=== PATIENT | female | born 1980 | race Two or more races ===

== ENCOUNTER 2017-05-15 13:02 | Inpatient (IN) | payer BC ==
[~2017-05-15] VITALS: Ht 165.1 cm; Wt 82.7 kg
[2017-05-15 13:53] LABS: Basophils # (auto) 0.1 uL; Basophils % (auto) 0.9 % (0.0-2.0); Eosinophils # (auto) 0.1 uL; Eosinophils % (auto) 1.5 % (0.0-7.0); Hematocrit 43.8 % (36.0-46.0); Lymphocytes # (auto) 2.8 uL; Lymphocytes % (auto) 32.1 % (10.0-50.0); Mean Corpuscular Hemoglobin 29.9 pg (28.0-32.0); Mean Corpuscular Hgb Conc. 34.2 g/dL (32.0-36.0); Mean Corpuscular Volume 87.4 fL (80.0-100.0); Mean Platelet Volume 8.5 fL (6.9-10.8); Monocytes # (auto) 0.4 uL; Monocytes % (auto) 4.6 % (0.0-12.0); Neutrophils # (auto) 5.3 uL; Neutrophils % (auto) 60.9 % (37.0-80.0); Nucleated Red Blood Cells % 0.1 %; Platelet Count (auto) 258 10^3/uL (140-450); Red Cell Distribution Width 13.4 % (11.8-14.3); White Blood Cell 8.7 10^3/uL (4.4-10.8)
[2017-05-15 14:20] LABS: Albumin 4.1 g/dL (3.4-5.0); Alkaline Phosphatase 41 U/L (45-117); Anion Gap 9 (5-15); Aspartate Aminotransferase 17 U/L (15-37); BUN/Creatinine Ratio 10.6; Bilirubin, Total 0.8 mg/dL (0.2-1.0); Blood Urea Nitrogen 7 mg/dL (7-18); Calcium 8.9 mg/dL (8.5-10.1); Carbon Dioxide 25 mmol/L (21-32); Chloride 104 mmol/L (98-107); GFR African American 132 mL/min; GFR Non-African American 109 mL/min; Glucose 96 mg/dL (74-106); Magnesium 2.5 mg/dL (1.6-2.6); Potassium 3.7 mmol/L (3.5-5.1); Sodium 138 mmol/L (136-145)
[2017-05-15] MEDS ORDERED: SODIUM CHLORIDE 0.9% 1,000 ML IV ONE (14:45)
[2017-05-15] MEDS ORDERED: MORPHINE SULF INJ 2 MG/ML SYRINGE 1ML IV ONE (14:45)
[2017-05-15] MEDS ORDERED: ASPirin 81 mg TAB PO ONE ×2 (14:45→16:30)
[2017-05-15] MEDS ORDERED: ONDANSETRON HCL 4 MG/2 ML VIAL IV ONE (14:45)
[2017-05-15 15:06] LABS: Urine Bilirubin Negative (Negative); Urine Blood TRACE /uL (Negative); Urine Color Yellow (Yellow); Urine Glucose Normal (Normal); Urine Ketone Negative (Negative); Urine Nitrite Negative (Negative); Urine RBC 2 /hpf (0 - 4); Urine Squamous Epithelial Cell FEW /hpf (<5); Urine Urobilinogen Normal (Negative); Urine pH 6.5 (5.0-8.0)
[2017-05-15] MEDS ORDERED: MORPHINE SULF INJ 2 MG/ML SYRINGE 1ML IV PRN ×2 (16:15)
[2017-05-15] MEDS ORDERED: LORazepam 0.5 MG TAB PO PRN (16:15)
[2017-05-15] MEDS ORDERED: ACETAMINOPHEN 500 MG TAB PO PRN (16:15)
[2017-05-15] MEDS ORDERED: HYDROcodone-ACET 5/325MG TAB PO PRN (16:15)
[2017-05-15] MEDS ORDERED: NITROGLYCERIN 0.4 MG SL TAB SL PRN (16:15)
[2017-05-15] MEDS ORDERED: PROMETHAZINE HCL 25 MG/ML 1ML IV PRN (16:15)
[2017-05-15] MEDS ORDERED: LACTULOSE 20Gm/30ML SOLN PO PRN (16:15)
[2017-05-15] MEDS ORDERED: ENOXAPARIN SOD 40 MG/0.4 ML SYRINGE SC ONE (16:30)
[2017-05-15] MEDS ORDERED: CARVEDILOL 3.125 MG TAB PO ONE (16:30)
[2017-05-15 16:57] LABS: B-Type Natriuretic Peptide 6.3 pg/mL (0-100); Temperature: 23.1 C (20.0-25.0)
[2017-05-15 17:50] VITALS: BP 116/70
[2017-05-15] MEDS ORDERED: MAGN100T2 PO (20:21)
[2017-05-15] MEDS: CARVEDILOL 3.125 MG TAB PO SCH (21:46)
[2017-05-15] MEDS: SODIUM CHLOR 0.9% PF (SALINE LOCK) 10ML VIAL IV SCH (21:47)
[2017-05-15 22:53] VITALS: BP 119/68
[2017-05-16 05:05] VITALS: BP 103/66
[2017-05-16] MEDS: SODIUM CHLOR 0.9% PF (SALINE LOCK) 10ML VIAL IV SCH ×3 (06:16→22:21)
[2017-05-16 06:44] LABS: Cholesterol 114 mg/dL (< 200); HDL Cholesterol 37 mg/dL (40-59); LDL Cholesterol 78 mg/dL (< 100); Triglycerides 97 mg/dL (< 150)
[2017-05-16 06:57] LABS: B-Type Natriuretic Peptide 19.6 pg/mL (0-100)
[2017-05-16 09:19] VITALS: BP 115/72
[2017-05-16] MEDS: CARVEDILOL 3.125 MG TAB PO SCH ×2 (09:53→22:20)
[2017-05-16] MEDS: ENOXAPARIN SOD 40 MG/0.4 ML SYRINGE SC SCH (09:54)
[2017-05-16] MEDS: ASPirin 81 mg TAB PO SCH (09:54)
[2017-05-16 12:30] VITALS: BP 97/59
[2017-05-16 17:10] VITALS: BP 112/65
[2017-05-16 21:45] VITALS: BP 123/69
[2017-05-16] MEDS: TEMAZEPAM 15 MG CAP PO PRN (22:21)
[2017-05-17 04:37] VITALS: BP 97/52
[2017-05-17] MEDS: SODIUM CHLOR 0.9% PF (SALINE LOCK) 10ML VIAL IV SCH ×3 (04:47→22:00)
[2017-05-17 09:00] VITALS: BP 142/75
[2017-05-17 13:00] VITALS: BP 124/90
[2017-05-17] MEDS: CARVEDILOL 3.125 MG TAB PO SCH ×2 (14:24→23:05)
[2017-05-17] MEDS: ASPirin 81 mg TAB PO SCH (14:24)
[2017-05-17] MEDS: ENOXAPARIN SOD 40 MG/0.4 ML SYRINGE SC SCH (14:25)
[2017-05-17 17:00] VITALS: BP 134/79
[2017-05-17 22:00] VITALS: BP 108/60
[2017-05-17] MEDS: TEMAZEPAM 15 MG CAP PO PRN (23:04)
[2017-05-18] VITALS (7 sets, daily range): BP systolic 98–137; BP diastolic 52–81
[2017-05-18] MEDS: SODIUM CHLOR 0.9% PF (SALINE LOCK) 10ML VIAL IV SCH ×3 (05:05→21:37)
[2017-05-18] MEDS ORDERED: ALBUTEROL SULF 2.5 MG/0.5ML(0.5%) NEB SOLN ONE (09:25)
[2017-05-18] MEDS ORDERED: IPRATROPIUM BROM 0.5 MG/2.5ML INH SOL ONE (09:26)
[2017-05-18] MEDS ORDERED: ADENOSINE 74 MG in GIVE UN-DILUTED 0 ML IV ONE (09:30)
[2017-05-18] MEDS: CARVEDILOL 3.125 MG TAB PO SCH ×2 (10:00→21:37)
[2017-05-18] MEDS: ASPirin 81 mg TAB PO SCH (11:24)
[2017-05-19 05:00] VITALS: BP 118/63
[2017-05-19] MEDS: SODIUM CHLOR 0.9% PF (SALINE LOCK) 10ML VIAL IV SCH (06:46)
[2017-05-19 08:00] VITALS: BP 115/62
[2017-05-19 09:00] VITALS: BP 115/62
[2017-05-19] MEDS: CARVEDILOL 3.125 MG TAB PO SCH (09:45)
[2017-05-19] MEDS: ASPirin 81 mg TAB PO SCH (09:46)
[2017-05-19 12:31] VITALS: BP 116/74
[2017-05-19 13:00] VITALS: BP 116/74
== END 2017-05-19 16:10 | disposition home or self-care (01) | DRG 315 ==
LOC: ER 13:11 → TELE 13:12 → TELE-WESTW 17:50
PROVIDERS: ADMIT Internal Medicine; ATTEND Internal Medicine
DX: I31.9 Disease of pericardium, unspecified (principal); I42.9 Cardiomyopathy, unspecified; R55 Syncope and collapse; Z88.1 Allergy status to other antibiotic agents; F17.210 Nicotine dependence, cigarettes, uncomplicated; E86.0 Dehydration; E66.9 Obesity, unspecified; Z82.49 Family history of ischemic heart disease and other diseases of the circulatory system; Z68.30 Body mass index [BMI] 30.0-30.9, adult
CPT/HCPCS: 36415; 70450; 71020; 78452; 80053; 80061; 80307; 80320; 81001; 82550; 82962; 83735; 83880; 84443; 84484; 84702; 85025; 85379; 85652; 86141; 93005; 93017; 93306; 94640; 96361; 96374; 96375; 99291; J0153; J2405